=== PATIENT | male | born 1950 | race American Indian/Alaskan Native ===

== ENCOUNTER 2017-03-08 05:43 | Emergency (ER) | payer MEDICARE, OTHER ==
[2017-03-08 05:45] VITALS: BMI 34.9
[2017-03-08 05:49] VITALS: TEMP 97.7
[2017-03-08] MEDS ORDERED: Albuterol-Ipratrop 3 mg / 0.5 (3 ml) UD IH STA ×3 (06:10→06:15)
--- NOTE | 2017-03-08 06:14 | ED PDOC ---
Arrival/HPI - General Chief Complaint: Shortness Of Breath Time Seen by Provider: 03/08/17 05:52 - History of Present Illness Narrative History of Present Illness (Text): 66 y/o M c PMHx HTN, CAD s/p stent, hypothyroidism p/w dyspnea x 5 hours that awoke him. He states the shortness of breath is not typical of the dyspnea he gets on exertion. He denies chest pain, new or asymmetrical leg swelling, recent URI or fever. He has a long smoking history but denies history of COPD but states he has received albuterol in the hospital before. Past Medical History - Infectious Disease Hx of Infectious Diseases: None - Cardiac Hx Hypertension: Yes Other/Comment: CAD. Stents - Pulmonary Other/Comment: Heavy smoker - Neurological HX Cerebrovascular Accident: Yes - HEENT Hx Cataracts: Yes (with surgery) - Endocrine/Metabolic Hx Hypothyroidism: Yes - Gastrointestinal Other/Comment: "Liver problems" - Psychiatric Hx Substance Use: No - Surgical History Hx Cardiac Catheterization: Yes (stents) - Anesthesia Hx Anesthesia: Yes Hx Anesthesia Reactions: No Hx Malignant Hyperthermia: No Family/Social History Family/Social History: No Known Family HX Smoking Status: Heavy Smoker > 10 Cigarettes Daily Hx Alcohol Use: Yes Frequency of alcohol use: Socially Hx Substance Use: No Allergies/Home Meds Allergies/Adverse Reactions: Allergies shellfish derived Allergy (Verified 03/08/17 05:50) ANAPHYLAXIS Home Medications: Home Meds Medication Instructions Recorded Confirmed Amlodipine Bes/Olmesartan Med 1 tab PO DAILY 03/08/17 03/09/17 [Samia 10-40 mg Tablet] Atenolol [Tenormin] 1 tab PO DAILY 03/08/17 03/09/17 Clopidogrel [Plavix] 1 tab PO DAILY 03/08/17 03/09/17 Levothyroxine [Synthroid] 1 tab PO DAILY 03/08/17 03/09/17 Pravastatin Sodium [Pravachol] 1 tab PO DAILY 03/08/17 03/09/17 cloNIDine [Catapres] 1 tab PO DAILY 03/08/17 03/09/17 Review of Systems - Physician Review All systems were reviewed & negative as marked: Yes - Review of Systems Constitutional: absent: Fevers Respiratory: SOB Cardiovascular: absent: Chest Pain Physical Exam Vital Signs Temp Pulse Resp BP Pulse Ox 03/08/17 09:20 72 21 153/59 H 94 L 05/12/17 08:00 76 16 134/65 97 03/08/17 05:58 16 93 L 03/08/17 05:44 97.7 F 65 18 141/59 L 94 L Temperature: Afebrile Pulse: Regular Appearance: Positive for: Well-Appearing, Non-Toxic Mental Status: Positive for: Alert and Oriented X 3 - Systems Exam Head: Present: Atraumatic, Normocephalic Pupils: Present: PERRL Mouth: Present: Moist Mucous Membranes Neck: Present: Normal Range of Motion Respiratory/Chest: Present: Wheezes Cardiovascular: Present: Regular Rate and Rhythm Abdomen: No: Tenderness Back: No: CVA Tenderness Upper Extremity: Present: NORMAL PULSES Lower Extremity: Present: Normal Inspection Neurological: Present: GCS=15 Skin: Present: Normal Color Psychiatric: Present: Alert Medical Decision Making ED Course and Treatment: Will treat with duoenbs and steroids, check CXR to rule out PNA. Will sign out to ER day team at change of shift. - Lab Interpretations Lab Results: 03/08/17 06:10 03/08/17 07:20 Lab Results 03/08/17 07:20: Sodium 143, Potassium 3.6, Chloride 106, Carbon Dioxide 23, Anion Gap 18, BUN 11, Creatinine 0.7, Est GFR ( Amer) > 60, Est GFR (Non- Af Amer) > 60, Random Glucose 111 H, Calcium 8.9, Total Bilirubin 0.7, AST 82 H , ALT 50, Alkaline Phosphatase 149 H, Total Creatine Kinase 219, Troponin I 0.03 , NT-Pro-B Natriuret Pep 535 H, Total Protein 8.1, Albumin 4.1, Globulin 3.9, Albumin/Globulin Ratio 1.1 03/08/17 06:10: WBC 5.0, RBC 3.27 L, Hgb 10.3 L, Hct 31.2 L, MCV 95.4, MCH 31.5 , MCHC 33.0, RDW 17.4 H, Plt Count 163, MPV 11.4 H, Gran % 56.9, Lymph % (Auto) 36.5 H, [place] % (Auto) 5.2, Eos % (Auto) 1.2 L, Baso % (Auto) 0.2, Gran # 2.84, Lymph # 1.8, [place] # 0.3, Eos # 0.1, Baso # 0.01 - RAD Interpretation Radiology Orders: 03/08/17 06:09 CHEST TWO VIEWS (PA/LAT) [RAD] Stat - Medication Orders Current Medication Orders: Discontinued Medications Albuterol/Ipratropium (Duoneb 3 Mg/0.5 Mg (3 Ml) Ud) 3 ml IH Q15M STA Stop: 03/08/17 06:11 Last Admin: 03/08/17 06:10 Dose: 3 ml Albuterol/Ipratropium (Duoneb 3 Mg/0.5 Mg (3 Ml) Ud) 3 ml IH Q15M STA Stop: 03/08/17 06:16 Last Admin: 03/08/17 06:28 Dose: 3 ml Albuterol/Ipratropium (Duoneb 3 Mg/0.5 Mg (3 Ml) Ud) 3 ml IH Q15M STA Stop: 03/08/17 06:16 Last Admin: 03/08/17 06:42 Dose: 3 ml Methylprednisolone (Solu-Medrol) 125 mg IVP STAT STA Stop: 03/08/17 06:11 Last Admin: 03/08/17 06:17 Dose: 125 mg Disposition/Present on Arrival - Present on Arrival Any Indicators Present on Arrival: No History of DVT/PE: No History of Uncontrolled Diabetes: No Urinary Catheter: No History of Decub. Ulcer: No History Surgical Site Infection Following: None - Disposition Have Diagnosis and Disposition been Completed?: Yes Diagnosis: Wheezing Disposition: HOME/ ROUTINE Disposition Time: 07:00 Condition: GOOD Discharge Instructions (ExitCare): Dyspnea (ED), Wheezing (ED) Additional Instructions: PLEASE RETURN TO THE EMERGENCY DEPARTMENT FOR NEW OR WORSENING SYMPTOMS. RETURN RIGHT AWAY IF YOU CANNOT FOLLOW UP WITH YOUR PRIMARY CARE DOCTOR, CLINIC, OR SPECIALIST IN 1-2 DAYS. Prescriptions: Albuterol HFA [Ventolin HFA 90 mcg/actuation (8 g)] 2 puff IH Q4 #1 puff predniSONE [predniSONE Tab] 60 mg PO DAILY #12 tab Referrals: Nikhil Richardson, [Primary Care Provider] - Follow up with primary Sherman Flowers MD [Staff Provider] - Follow up with primary Chaz Benítez MD [Staff Provider] - Follow up with primary Sherman Pritchard MD [Staff Provider] - Follow up with primary
[2017-03-08 06:24] LABS: ADD MANUAL DIFF? NO
[2017-03-08 06:35] LABS: BASO # 0.01 K/mm3 (0.0-2.0); BASO % 0.2 % (0.0-3.0); EOS # 0.1 (0.0-0.7); EOS % 1.2 % (1.5-5.0); GRAN # 2.84 (1.4-6.5); GRAN % 56.9 % (50.0-68.0); HEMATOCRIT 31.2 % (42.0-52.0); LYMPH # 1.8 (1.2-3.4); LYMPH % 36.5 % (22.0-35.0); MEAN CELL VOLUME 95.4 fL (80.0-105.0); MEAN CORPUSCULAR HEMOGLOBIN 31.5 pg (25.0-35.0); MEAN PLATELET VOLUME 11.4 fl (7.0-11.0); MONO # 0.3 (0.1-0.6); MONO % 5.2 % (1.0-6.0); PLATELET COUNT 163 10^3/uL (120.0-450.0); RED CELL DISTRIBUTION WIDTH 17.4 % (11.5-14.5)
--- NOTE | 2017-03-08 07:12 | ED PDOC ---
Physical Exam Vital Signs Reviewed: Yes Vital Signs Temp Pulse Resp BP Pulse Ox 03/08/17 05:58 16 93 L 03/08/17 05:44 97.7 F 65 18 141/59 L 94 L Temperature: Afebrile Blood Pressure: Hypotensive Pulse: Regular Respiratory Rate: Normal Medical Decision Making ED Course and Treatment: 03/08/17 07:11 Patient signed out to me by Dr. Garcia. Pending labs and xray. Patient with a history of hypertension and CAD with stents presented with shortness of breath, denies chest pain. Per Dr. Garcia, pt had wheezing on presentation 03/08/17 07:40 pt currently in no distress, states he feels better after nebs. Lungs clear to ausc. b/l, pt speaking full sentences without difficulty. labs pending Chest xray interpreted by ED physician shows no pneumothorax, no cardiomegaly, no infiltrates EKG interpreted by ER physician. Normal sinus. No ST-segment elevations. Normal intervals. 03/08/17 09:10 on reevaluation, pt's lungs clear to ausc. bilaterally. pt speaking full sentences without difficulty pt offered observation in the hospital for further w/u, but asked to be dc'd home instead states he feels comfortable being dc'd home with outpatient f/u Pt states he understands to return to the ER right away for new or worsening symptoms or for inability to f/u with PMD or specialist as instructed. Patient states that he fully agrees with and understands discharge instructions. States that he agrees with the plan and disposition. Verbalized and repeated discharge instructions and plan. I have given the patient opportunity to ask any additional questions. 03/08/17 09:15 - Lab Interpretations Lab Results: 03/08/17 06:10 03/08/17 07:20 Lab Results 03/08/17 07:20: Sodium 143, Potassium 3.6, Chloride 106, Carbon Dioxide 23, Anion Gap 18, BUN 11, Creatinine 0.7, Est GFR ( Amer) > 60, Est GFR (Non- Af Amer) > 60, Random Glucose 111 H, Calcium 8.9, Total Bilirubin 0.7, AST 82 H , ALT 50, Alkaline Phosphatase 149 H, Total Creatine Kinase 219, Troponin I 0.03 , NT-Pro-B Natriuret Pep 535 H, Total Protein 8.1, Albumin 4.1, Globulin 3.9, Albumin/Globulin Ratio 1.1 03/08/17 06:10: WBC 5.0, RBC 3.27 L, Hgb 10.3 L, Hct 31.2 L, MCV 95.4, MCH 31.5 , MCHC 33.0, RDW 17.4 H, Plt Count 163, MPV 11.4 H, Gran % 56.9, Lymph % (Auto) 36.5 H, [place] % (Auto) 5.2, Eos % (Auto) 1.2 L, Baso % (Auto) 0.2, Gran # 2.84, Lymph # 1.8, [place] # 0.3, Eos # 0.1, Baso # 0.01 - RAD Interpretation Radiology Orders: 03/08/17 06:09 CHEST TWO VIEWS (PA/LAT) [RAD] Stat - Medication Orders Current Medication Orders: Discontinued Medications Albuterol/Ipratropium (Duoneb 3 Mg/0.5 Mg (3 Ml) Ud) 3 ml IH Q15M STA Stop: 03/08/17 06:11 Last Admin: 03/08/17 06:10 Dose: 3 ml Albuterol/Ipratropium (Duoneb 3 Mg/0.5 Mg (3 Ml) Ud) 3 ml IH Q15M STA Stop: 03/08/17 06:16 Last Admin: 03/08/17 06:28 Dose: 3 ml Albuterol/Ipratropium (Duoneb 3 Mg/0.5 Mg (3 Ml) Ud) 3 ml IH Q15M STA Stop: 03/08/17 06:16 Last Admin: 03/08/17 06:42 Dose: 3 ml Methylprednisolone (Solu-Medrol) 125 mg IVP STAT STA Stop: 03/08/17 06:11 Last Admin: 03/08/17 06:17 Dose: 125 mg - Scribe Statement The provider has reviewed the documentation as recorded by the Nya Ko Provider Scribe Attestation: All medical record entries made by the Scribe were at my direction and personally dictated by me. I have reviewed the chart and agree that the record accurately reflects my personal performance of the history, physical exam, medical decision making, and the department course for this patient. I have also personally directed, reviewed, and agree with the discharge instructions and disposition. Disposition/Present on Arrival - Present on Arrival Any Indicators Present on Arrival: No History of DVT/PE: No History of Uncontrolled Diabetes: No Urinary Catheter: No History of Decub. Ulcer: No History Surgical Site Infection Following: None - Disposition Have Diagnosis and Disposition been Completed?: Yes Diagnosis: Wheezing Disposition: HOME/ ROUTINE Disposition Time: 09:16 Patient Plan: Discharge Condition: GOOD Discharge Instructions (ExitCare): Wheezing (ED), Dyspnea (ED) Additional Instructions: PLEASE RETURN TO THE EMERGENCY DEPARTMENT FOR NEW OR WORSENING SYMPTOMS. RETURN RIGHT AWAY IF YOU CANNOT FOLLOW UP WITH YOUR PRIMARY CARE DOCTOR, CLINIC, OR SPECIALIST IN 1-2 DAYS. Prescriptions: Albuterol HFA [Ventolin HFA 90 mcg/actuation (8 g)] 2 puff IH Q4 #1 puff predniSONE [predniSONE Tab] 60 mg PO DAILY #12 tab Referrals: Nikhil Richardson, [Primary Care Provider] - Follow up with primary Sherman Pritchard MD [Staff Provider] - Follow up with primary Sherman Flowers MD [Staff Provider] - Follow up with primary Chaz Benítez MD [Staff Provider] - Follow up with primary
[2017-03-08 07:47] LABS: ALB/GLOB RATIO 1.1 (1.1-1.8); ALKALINE PHOSPHATASE 149 U/L (38-133); ALT/SGPT 50 U/L (7-56); AST/SGOT 82 U/L (15-59); BILIRUBIN,TOTAL 0.7 mg/dL (0.2-1.3); BLOOD UREA NITROGEN 11 mg/dL (7-21); CALCIUM 8.9 mg/dL (8.4-10.5); CARBON DIOXIDE 23 mmol/L (21-33); CHLORIDE 106 mmol/L (98-107); GFR AFRICAN-AMERICAN > 60; GLUCOSE,RANDOM 111 mg/dL (70-110); POTASSIUM 3.6 mmol/L (3.6-5.0); SODIUM 143 mmol/L (132-148); TOTAL PROTEIN 8.1 g/dL (5.8-8.3)
[2017-03-08 07:57] LABS: TROPONIN I 0.03 ng/mL
--- NOTE | 2017-03-08 08:48 | RAD ---
HISTORY: r/o PNA, dyspnea, wheezing COMPARISON: No prior. TECHNIQUE: Chest PA and lateral FINDINGS: LUNGS: No active pulmonary disease. PLEURA: No significant pleural effusion identified. No pneumothorax apparent. CARDIOVASCULAR: There is mild vascular congestion OSSEOUS STRUCTURES: No significant abnormalities. VISUALIZED UPPER ABDOMEN: Normal. OTHER FINDINGS: None. IMPRESSION: Mild vascular congestion
[2017-03-08 09:21] VITALS: BP 153/59; PULSE 72; RESP 21; O2SAT 94
--- NOTE | 2017-03-08 11:52 | CARD ---
APPROVED REPORT EKG Measurement Heart [id number] <Conclusion> Sinus rhythm with 1st degree AV block Inferior infarct, age undetermined NSSTW changes
== END 2017-03-08 09:35 | disposition home or self-care (01) ==
LOC: ED 05:43
DX: R06.2 Wheezing (principal); I10 Essential (primary) hypertension; I25.10 Atherosclerotic heart disease of native coronary artery without angina pectoris; E03.9 Hypothyroidism, unspecified
CPT/HCPCS: 71020; 80053; 82550; 83880; 84484; 85025; 93005; 96374; 99285; J2930

== ENCOUNTER 2017-03-09 07:06 | Inpatient (IN) | payer MEDICARE ==
[2017-03-09] MEDS ORDERED: Albuterol-Ipratrop 3 mg / 0.5 (3 ml) UD IH STA (07:20)
[2017-03-09] MEDS ORDERED: MethylPREDNISolone 40 mg Vial IVP STA (07:31)
--- NOTE | 2017-03-09 07:31 | ED PDOC ---
Arrival/HPI - General Chief Complaint: Shortness Of Breath Time Seen by Provider: 03/09/17 07:08 - History of Present Illness Narrative History of Present Illness (Text): 66 y/o M c PMHx HTN, CAD s/p stent, hypothyroidism p/w dyspnea that awoke him last night. He reports burning in his chest, which feels similar to his heartburn and he took Zantac with releif. He denies new or asymmetrical leg swelling, recent URI or fever. He has a long smoking history but denies history of COPD but states he has received albuterol in the hospital before. He was in this ER yesterday morning with the same dyspnea and had wheezing on auscultation , was treated with duonebs, steroids, felt better, and was offered observation but preferred to be discharged home. His symptoms recurred last night so he returned. He states that he has more dyspnea with laying flat. Past Medical History - Infectious Disease Hx of Infectious Diseases: None - Cardiac Hx Hypertension: Yes Other/Comment: CAD. Stents - Pulmonary Other/Comment: Heavy smoker - Neurological HX Cerebrovascular Accident: Yes - HEENT Hx Cataracts: Yes (with surgery) - Endocrine/Metabolic Hx Hypothyroidism: Yes - Gastrointestinal Other/Comment: "Liver problems" - Psychiatric Hx Substance Use: No - Surgical History Hx Cardiac Catheterization: Yes (stents) - Anesthesia Hx Anesthesia: Yes Hx Anesthesia Reactions: No Hx Malignant Hyperthermia: No Family/Social History Family/Social History: No Known Family HX Smoking Status: Heavy Smoker > 10 Cigarettes Daily Hx Alcohol Use: Yes Hx Substance Use: No Allergies/Home Meds Allergies/Adverse Reactions: Allergies shellfish derived Allergy (Verified 03/08/17 05:50) ANAPHYLAXIS Home Medications: Home Meds Medication Instructions Recorded Confirmed Amlodipine Bes/Olmesartan Med 1 tab PO DAILY 03/08/17 03/09/17 [Samia 10-40 mg Tablet] Atenolol [Tenormin] 1 tab PO DAILY 03/08/17 03/09/17 Clopidogrel [Plavix] 1 tab PO DAILY 03/08/17 03/09/17 Levothyroxine [Synthroid] 1 tab PO DAILY 03/08/17 03/09/17 Pravastatin Sodium [Pravachol] 1 tab PO DAILY 03/08/17 03/09/17 cloNIDine [Catapres] 1 tab PO DAILY 03/08/17 03/09/17 Review of Systems - Physician Review All systems were reviewed & negative as marked: Yes - Review of Systems Constitutional: absent: Fevers Respiratory: SOB Gastrointestinal: absent: Abdominal Pain Physical Exam - Physical Exam Narrative Physical Exam (Text): 03/09/17 07:32 Constitutional: No acute distress. Head: Normocephalic. Atraumatic. Eyes: PERRL. ENT: Moist mucous membranes. Neck: Supple. Cardiovascular: Regular rate. Chest: No tenderness. Respiratory: Mild diffuse wheezing. Hypoxic to 91% on room air. GI: Soft. Nontender. Nondistended. Back: No CVA tenderness. Musculoskeletal: No tenderness or swelling of extremities. Skin: No rash. Neurologic: Alert, no focal deficit. Vital Signs Temp Pulse Resp BP Pulse Ox 03/09/17 10:04 75 18 135/70 95 03/09/17 08:30 80 20 146/88 93 L 03/09/17 07:14 98.7 F 76 20 152/73 H 92 L Medical Decision Making ED Course and Treatment: Will continue duoneb and treat with additional steroids. Will also check BNP, second set enzymes, and repeat CXR for developing PNA vs developing CHF. EKG: Ordered, reviewed, and independently interpreted the EKG. Rate : 70 BPM Rhythm : NSR Interpretation : No ST elevations. Non-specific ST-T wave changes. Q-waves in 3 and AVF. Comparison : Unchanged from yesterday. Troponin positive. Aspirin administered. Dr. Gilbert accepts to her service on remote telemetry. Dr. Brito accepts cardiology consultation. Dr. Arciniega accepts GI consultation for elevated LFTs. CXR shows no change from yesterday. - Lab Interpretations Lab Results: 03/09/17 07:33 03/09/17 07:33 Lab Results 03/09/17 07:33: Sodium 142, Potassium 4.0, Chloride 105, Carbon Dioxide 21, Anion Gap 20, BUN 20, Creatinine 0.8, Est GFR ( Amer) > 60, Est GFR (Non- Af Amer) > 60, Random Glucose 161 H, Calcium 9.2, Total Bilirubin 0.7, AST 78 H , ALT 48, Alkaline Phosphatase 140 H, Total Creatine Kinase 296 H, CK-MB (CK-2) 3.1, CK-MB (CK-2) % Cancelled, Troponin I 0.14 H* D, NT-Pro-B Natriuret Pep 1220 H, Total Protein 8.7 H, Albumin 4.2, Globulin 4.5, Albumin/Globulin Ratio 0.9 L 03/09/17 07:33: PT 12.2 H, INR 1.13 H, APTT 26.1 03/09/17 07:33: WBC 7.0 D, RBC 3.18 L, Hgb 10.0 L, Hct 30.5 L, MCV 95.9, MCH 31.4, MCHC 32.8, RDW 17.4 H, Plt Count 172, MPV 11.5 H, Gran % 79.8 H, Lymph % ( Auto) 15.6 L, [place] % (Auto) 4.6, Eos % (Auto) 0.0 L, Baso % (Auto) 0.0, Gran # 5.58, Lymph # 1.1 L, [place] # 0.3, Eos # 0.0, Baso # 0.00 - RAD Interpretation Radiology Orders: 03/09/17 07:23 CHEST TWO VIEWS (PA/LAT) [RAD] Stat 03/09/17 09:04 HEPATIC [US] Stat - Medication Orders Current Medication Orders: Acetaminophen (Tylenol 325mg Tab) 650 mg PO Q6H PRN PRN Reason: Pain Amlodipine Besylate (Norvasc) 10 mg PO DAILY [facility] Atorvastatin Calcium (Lipitor) 10 mg PO DIN [facility] Clonidine HCl (Catapres) 0.1 mg PO Q4H PRN PRN Reason: accelerated hyperetension Clopidogrel Bisulfate (Plavix) 75 mg PO DAILY [facility] Insulin Human Regular (Humulin R Low) 0 units SC ACHS DIANE PRN Reason: Protocol Levalbuterol HCl (Xopenex) 0.63 mg IH [id number] [facility] Last Admin: 03/09/17 09:57 Dose: 0.63 mg Lisinopril (Zestril) 10 mg PO BID [facility] Methylprednisolone (Solu-Medrol) 40 mg IV Q6 [facility] Metoprolol Tartrate (Lopressor) 25 mg PO BRKDIN [facility] Pantoprazole Sodium (Protonix Inj) 40 mg IVP DAILY [facility] Discontinued Medications Albuterol/Ipratropium (Duoneb 3 Mg/0.5 Mg (3 Ml) Ud) 3 ml IH Q15M STA Stop: 03/09/17 07:21 Last Admin: 03/09/17 07:35 Dose: 3 ml Aspirin (Aspirin) 325 mg PO STAT STA Stop: 03/09/17 08:41 Last Admin: 03/09/17 09:57 Dose: 325 mg Methylprednisolone (Solu-Medrol) 80 mg IVP STAT STA Stop: 03/09/17 07:32 Last Admin: 03/09/17 08:03 Dose: 80 mg Methylprednisolone (Solu-Medrol) Confirm Administered Dose 80 mg .ROUTE .STK- MED ONE Stop: 03/09/17 07:50 Last Admin: 03/09/17 08:07 Dose: Disposition/Present on Arrival - Present on Arrival Any Indicators Present on Arrival: No History of DVT/PE: No History of Uncontrolled Diabetes: No Urinary Catheter: No History of Decub. Ulcer: No History Surgical Site Infection Following: None - Disposition Have Diagnosis and Disposition been Completed?: Yes Diagnosis: NSTEMI (non-ST elevated myocardial infarction) Disposition: HOSPITALIZED Disposition Time: 08:53 Patient Plan: Admission, Telemetry Condition: GUARDED
[2017-03-09 07:34] LABS: ADD MANUAL DIFF? NO
[2017-03-09 07:40] LABS: GRAN # 5.58 (1.4-6.5); GRAN % 79.8 % (50.0-68.0); HEMATOCRIT 30.5 % (42.0-52.0); LYMPH # 1.1 (1.2-3.4); LYMPH % 15.6 % (22.0-35.0); MEAN CELL VOLUME 95.9 fL (80.0-105.0); MEAN CORPUSCULAR HEMOGLOBIN 31.4 pg (25.0-35.0); MEAN CORPUSCULAR HGB CONC 32.8 g/dl (31.0-37.0); MEAN PLATELET VOLUME 11.5 fl (7.0-11.0); MONO # 0.3 (0.1-0.6); MONO % 4.6 % (1.0-6.0); PLATELET COUNT 172 10^3/uL (120.0-450.0); RED CELL DISTRIBUTION WIDTH 17.4 % (11.5-14.5)
[2017-03-09 07:46] LABS: ALB/GLOB RATIO 0.9 (1.1-1.8); ALKALINE PHOSPHATASE 140 U/L (38-133); ALT/SGPT 48 U/L (7-56); AST/SGOT 78 U/L (15-59); BILIRUBIN,TOTAL 0.7 mg/dL (0.2-1.3); BLOOD UREA NITROGEN 20 mg/dL (7-21); CALCIUM 9.2 mg/dL (8.4-10.5); CARBON DIOXIDE 21 mmol/L (21-33); CHLORIDE 105 mmol/L (98-107); GFR AFRICAN-AMERICAN > 60; GLUCOSE,RANDOM 161 mg/dL (70-110); SODIUM 142 mmol/L (132-148); TOTAL PROTEIN 8.7 g/dL (5.8-8.3)
[2017-03-09 07:47] LABS: INR 1.13 (0.93-1.08); PARTIAL THROMBOPLASTIN TIME 26.1 Seconds (23.7-30.8)
[2017-03-09] MEDS ORDERED: MethylPREDNISolone 40 mg Vial ONE (07:49)
[2017-03-09 08:29] LABS: TROPONIN I 0.14 ng/mL
--- NOTE | 2017-03-09 09:20 | RAD ---
HISTORY: dyspnea, wheezing, "heartburn" COMPARISON: 03/08/2017 TECHNIQUE: Chest PA and lateral FINDINGS: LUNGS: Basilar atelectatic changes. Mild pulmonary vascular congestion. PLEURA: No significant pleural effusion identified. No pneumothorax apparent. CARDIOVASCULAR: Mildly increased size the heart, essentially unchanged from the prior radiograph. OSSEOUS STRUCTURES: The osseous structures demonstrate degenerative changes. VISUALIZED UPPER ABDOMEN: Upper abdomen is suboptimally evaluated. OTHER FINDINGS: None. IMPRESSION: Bibasilar atelectatic changes. Mild pulmonary vascular congestion. No significant interval change.
[2017-03-09] MEDS: Levalbuterol 0.63 MG/3 ML Inhal Soln UD IH SCH ×2 (09:57→19:35)
--- NOTE | 2017-03-09 10:08 | CARD ---
APPROVED REPORT EKG Measurement Heart [id number] VT [id number] <Conclusion> Normal sinus rhythm with 1st degree AVB Nonspecific ST and T wave abnormality Prolonged QT No change
--- NOTE | 2017-03-09 10:19 | US ---
HISTORY: elevated lfts COMPARISON: 11/20/2012 TECHNIQUE: Sonographic evaluation of the abdomen. FINDINGS: LIVER: Measures 18.8 cm. Markedly heterogeneous echogenicity of the liver parenchyma. No intrahepatic bile duct dilatation. GALLBLADDER: Relatively contracted gallbladder. No gallbladder wall edema or pericholecystic fluid. According to the technologist, the sonographic Rodriguez's sign was not present. COMMON BILE DUCT: Measures 3-4 mm. No stones. No dilatation. PANCREAS: Suboptimally seen. RIGHT KIDNEY: Measures 11.6 x 5.5 x 6.6cm. Normal echogenicity. No calculus, mass, or hydronephrosis. LEFT KIDNEY: Not imaged. SPLEEN: Not imaged. AORTA: Not seen clearly. IVC: The visualized portions of the IVC appear unremarkable. OTHER FINDINGS: The visualized segments of the portal vein appear patent. IMPRESSION: Heterogeneous echotexture of the hepatic parenchyma could be due to hepatic steatosis versus parenchymal disease. If indicated, MRI can be obtained for better evaluation. Hepatomegaly.
[2017-03-09 10:42] LABS: IRON 40 ug/dL (45-180)
[2017-03-09] MEDS ORDERED: Insulin Regular 1 UNITS/0.01 ML ML ONE (11:33)
[2017-03-09] MEDS: Insulin Reg-LOW-Coverage SC SCH ×3 (11:33→22:15)
[2017-03-09] MEDS: MethylPREDNISolone 40 mg Vial IV SCH ×2 (12:18→17:20)
[2017-03-09 14:40] VITALS: BMI 35.8
[2017-03-09] MEDS ORDERED: Pneumococcal 23-Valent Vaccine IM ONE (14:40)
[2017-03-09 19:00] LABS: FOLATE 3.8 ng/mL
--- NOTE | 2017-03-09 22:15 | HP ---
This 66-year-old male was examined at his bedside. He presented to the [facility] Emergency Room twice within the past 24 hours. Yesterday he was complaining of shortness of breath, was treated in the ER, achieved symptomatic relief and though advised to stay left but represented this morning complaining of additional shortness of breath and "heartburn." While in the Emergency Room this morning, he was noted to have an elevated troponin level and was admitted for a subendocardial myocardial infarction, a non-DELMA W[place]. The patient also was coughing and congested, was given DuoNeb nebulizers and IV steroids and at present, has a mild expiratory wheeze. On further questioning of the patient, he is a resident of [place], [place], here visiting family members in the [place] area and has comorbidities of chronic hypertension, obesity, hyperlipidemia, peripheral vascular disease, hypothyroidism and chronic obstructive pulmonary disease. He states he is status post coronary artery, carotid and leg stents in the distant past and at present is not complaining of any shortness of breath or chest pain. REVIEW OF SYSTEMS: HEAD: No headache or seizure, no knowledge of previous stroke. EYES: No change in visual acuity. EARS: No hearing loss. THROAT: No swallowing difficulty. NECK: No stiffness. CARDIAC: He is status post a non-STEMI. He has a history of coronary artery stents, chronic hypertension and hyperlipidemia. PULMONARY: Chronic obstructive pulmonary disease, active smoker of a pack of cigarettes per day. GASTROINTESTINAL: He has a history of fatty liver, elevated liver function testings of long duration and history of drinking 1 pint of alcohol daily. GENITOURINARY: No dysuria. SKIN: Without rash. NEUROLOGIC: No knowledge of stroke or TIA. VASCULAR: No active claudication. ENDOCRINE: Hyperlipidemia, HEMATOLOGIC: He has anemia and states he had a colonoscopy and endoscopy within the past 4 years that was completely unremarkable. FAMILY HISTORY: Father at the age of 29 of a reported heart attack, mother in her 40s of leukemia. ALLERGIES: HE HAS ALLERGIES TO SHELLFISH. HOME MEDICATIONS: Included Clonidine, Pravachol, Synthroid, Plavix, Tenormin, Samia and albuterol inhaler. SOCIAL HISTORY: He is former cocaine misuser. No history of IV drug misuse. He is a current smoker and a current drinker. PHYSICAL EXAMINATION: VITAL SIGNS: The patient is in a normal sinus rhythm on the informatics developer with a temperature of 98.8, respirations 18, pulse 72, blood pressure 141/77 with a pulse ox of 95% on room air. HEENT: Head is normocephalic, atraumatic. Eyes show no icterus. Ears clear. Throat not injected. NECK: Supple. HEART: Regular S1, S2. No pathological rubs, murmurs, or gallops. LUNGS: With occasional rhonchi and wheezing that clear with coughing. ABDOMEN: Obese, nontender, no palpable organomegaly, no rebound, no guarding, no tenderness. EXTREMITIES: No clubbing, no cyanosis, no edema. SKIN: Without rash. NEUROLOGICAL: Intact. PSYCHOLOGICAL: Alert and oriented x 3. VASCULAR: Legs warm to touch. LABORATORY DATA: White count 7000, hemoglobin 10, hematocrit 30.5, MCV 95, platelets 172,000. PT/INR 1.13, PTT 26.1. Sodium 142, K 4.0, chloride 105, bicarbonate 21, BUN 20, creatinine 0.8, random blood sugar 161, percent saturation 10, bilirubin normal at 0.7, AST 78, normal is 59 or less; ALT normal at 48, alkaline phosphatase 140, normal is 133 or less. CPK elevated at 296, troponin elevated at 0.14. BNP 1220. Cholesterol 144, LDL 106, HDL 31, triglycerides 82. T4 is normal at 11. Vitamin B12, folic acid, and ferritin levels are pending. Chest x-ray shows no active disease. EKG shows normal sinus rhythm with nonspecific ST-T wave changes. Liver ultrasound showed fatty liver and hepatomegaly. IMPRESSION: This is a 66-year-old obese black male with a non-ST elevation myocardial infarction, chronic hypertension, hyperlipidemia, history of atherosclerotic heart disease with stents, now with resolved "heartburn" with anemia, chronic obstructive pulmonary disease, hyperglycemia and hypothyroidism. PLAN: At present is to consult Dr. Brito from cardiology, consult, Dr. Gisele Arciniega from gastroenterology. I have ordered a Hepatitis A, B, and C panel for completeness sake. I have also ordered an urinalysis for completeness sake and placed the patient on a heart healthy moderately restricted carbohydrate diet. He will be given Zestril 10 mg b.i.d., Xopenex inhalational therapy q.6, Synthroid 12.5 mcg p.o. daily, Solu-Medrol 40 mg IV q.6, which will be tapered pending his clinical response, Protonix 40 mg IV daily, Plavix 75 mg p.o. daily , Norvasc 10 mg p.o. daily, metoprolol tartrate 25 mg b.i.d., Lipitor 10 mg p.o. at dinnertime. I have placed him on regular low dose insulin protocol before meals and at bedtime. He will be ordered to have clonidine 0.1 mg p.o. q.4 hours p.r.n. accelerated hypertension if his systolic blood pressure should be greater than 160 or his diastolic blood pressure should be greater than 100. The patient was given Ecotrin 325 mg in the Emergency Room. He will have a basic metabolic panel and hemoglobin and hematocrit repeated in the a.m. We will await the results of his vitamin B12, and hepatitis panels as well as his folic acid level and ferritin. I have had a lengthy discussion with the patient at his bedside regarding the need upon his return to his private physician in [place], [place] to review his findings of iron deficiency anemia and to schedule perhaps a repeat endoscopy and colonoscopy if his PMD feels it is warranted at this time. They will also need to further monitor his anemia. The patient is awaiting clearances from GI and cardiology and his ultimate plan will be to return home to his private physician for additional workup and addressing all of the above issues as outlined. Greater than 50 minutes was spent in the care, coordination of care, review of care and discussion of care with the patient, his nurse and co-consultants today. Nehal Gilbert MD cc: [id number] TT: 03/09/2017 22:15:02 jovanna MURPHY
--- NOTE | 2017-03-09 23:34 | CP.PCM.PN ---
Subjective - Date & Time of Evaluation Date of Evaluation: 03/09/17 Time of Evaluation: 23:34 - Subjective Subjective: # angiocth was inserted in arm. DX : Poor venous access. Objective - Vital Signs/Intake and Output Vital Signs (last 24 hours): Temp Pulse Resp BP Pulse Ox 98.4 F 70 16 144/59 L 95 03/09/17 17:37 03/09/17 19:36 03/09/17 17:37 03/09/17 17:37 03/09/17 11:16 Intake and Output: 03/09/17 03/10/17 18:59 06:59 Intake Total 360 Balance 360 - Medications Medications: Current Medications Acetaminophen (Tylenol 325mg Tab) 650 mg PO Q6H PRN PRN Reason: Pain Amlodipine Besylate (Norvasc) 10 mg PO DAILY [facility] Last Admin: 03/09/17 10:14 Dose: 10 mg Atorvastatin Calcium (Lipitor) 10 mg PO DIN [facility] Last Admin: 03/09/17 17:16 Dose: 10 mg Clonidine HCl (Catapres) 0.1 mg PO Q4H PRN PRN Reason: accelerated hyperetension Clopidogrel Bisulfate (Plavix) 75 mg PO DAILY [facility] Last Admin: 03/09/17 10:15 Dose: 75 mg Enoxaparin Sodium (Lovenox) 120 mg SC Q12H [facility] PRN Reason: Protocol Insulin Human Regular (Humulin R Low) 0 units SC ACHS [facility] PRN Reason: Protocol Last Admin: 03/09/17 22:15 Dose: Not Given Levalbuterol HCl (Xopenex) 0.63 mg IH [id number] [facility] Last Admin: 03/09/17 19:35 Dose: 0.63 mg Levothyroxine Sodium (Synthroid) 12.5 mcg PO ACB [facility] Lisinopril (Zestril) 10 mg PO BID [facility] Last Admin: 03/09/17 17:11 Dose: 10 mg Methylprednisolone (Solu-Medrol) 40 mg IV Q6 [facility] Last Admin: 03/09/17 17:20 Dose: 40 mg Metoprolol Tartrate (Lopressor) 25 mg PO BRKDIN [facility] Last Admin: 03/09/17 17:11 Dose: 25 mg Pantoprazole Sodium (Protonix Inj) 40 mg IVP DAILY [facility] Last Admin: 05/13/17 10:14 Dose: 40 mg - Labs Labs: PT 12.2 Seconds (9.9-11.8) H 03/09/17 07:33 INR 1.13 (0.93-1.08) H 03/09/17 07:33 APTT 26.1 Seconds (23.7-30.8) 03/09/17 07:33
[2017-03-10] MEDS: MethylPREDNISolone 40 mg Vial IV SCH ×4 (00:17→22:13)
[2017-03-10] MEDS: Enoxaparin 120 mg Syringe SC SCH ×3 (00:19→22:12)
[2017-03-10] MEDS: Levalbuterol 0.63 MG/3 ML Inhal Soln UD IH SCH ×5 (00:49→20:40)
[2017-03-10 04:42] LABS: URINE BILIRUBIN NEGATIVE (NEGATIVE); URINE BLOOD NEGATIVE (NEGATIVE); URINE GLUCOSE (UA) NEGATIVE (NEGATIVE); URINE KETONE NEGATIVE (NEGATIVE); URINE LEUKOCYTE ESTERASE NEGATIVE Leu/uL (NEGATIVE); URINE PROTEIN NEGATIVE mg/dL (<30 mg/dL); URINE UROBILINOGEN 0.2 E.U./dL (<1 E.U./dL)
[2017-03-10 04:43] LABS: URINE APPEARANCE CLEAR (CLEAR); URINE COLOR YELLOW (YELLOW)
[2017-03-10 06:52] LABS: BLOOD UREA NITROGEN 28 mg/dL (7-21); CALCIUM 8.9 mg/dL (8.4-10.5); CARBON DIOXIDE 27 mmol/L (21-33); CHLORIDE 105 mmol/L (98-107); GFR AFRICAN-AMERICAN > 60; GLUCOSE,RANDOM 155 mg/dL (70-110); SODIUM 142 mmol/L (132-148)
[2017-03-10 07:02] LABS: HEMATOCRIT 30.3 % (42.0-52.0)
[2017-03-10 07:06] LABS: TROPONIN I 0.23 ng/mL
--- NOTE | 2017-03-10 07:41 | CON ---
DATE: 03/09/2017 This patient was seen and evaluated earlier today. This is a 66-year-old patient with a past medical history of hypertension, coronary artery disease status post PCI, hypothyroidism. Admitted with pro gressive worsening of shortness of breath and the symptoms got more pronounced last night. He came t o the Emergency Room. He has a history of chronic reflux and he thought this could be it and took so me Zantac with some relief. This patient was admitted with progressive shortness of breath. The pat feng was found to have abnormal LFTs. GI consult was requested to evaluate. The patient lives in [facility] [place]. He is here visiting his sister. OTHER PAST MEDICAL HISTORY: As above. SOCIAL HISTORY: Positive for smoking. The patient was found to have elevated LFTs. GI consult was requested to evaluate this. Denies any abdominal pain. The ultrasound showed a contracted gallbladder. The bile duct measures only 3-4 mm. PHYSICAL EXAMINATION: EXTREMITIES: The patient does have bilateral pitting pedal edema. LUNGS: Shows slightly reduced at bases and occasional crackles seen. IMPRESSION: This 66-year-old patient admitted with shortness of breath, found to have pneumonia. GI consult was requested to evaluate the abnormal LFTs. 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 Other comorbidities as ment ioned above, history of hypertension. PLAN: 1. To follow up the hemoglobin and hematocrit. 2. Follow up the hepatitis profile. 3. Followup of the ultrasound. 4. Would recommend followup of the LFTs and hepatitis profile. 5. Continue present management and cardiology will follow up. 6. Continue to closely follow up the LFTs. Presently, patient is on Lipitor, Plavix, Solu-Medrol and insulin. We will continue to closely follo w up his care and suggest further management based on the clinical course. Continue to follow up the LFTs, hepatitis profile. Thank you very much for allowing us to participate in the care of the patient. Gisele Arciniega MD cc: [id number] TT: 03/10/2017 07:40:25 Confirmation # [id number] Dictation # [id number] en
[2017-03-10] MEDS: Insulin Reg-LOW-Coverage SC SCH ×4 (08:12→22:21)
[2017-03-10] MEDS: Levothyroxine 25 MCG TAB PO SCH (08:13)
[2017-03-10] MEDS: Potassium Chloride 20 mEq ER Tab PO SCH (10:30)
--- NOTE | 2017-03-10 10:46 | CARD ---
APPROVED REPORT EKG Measurement Heart [id number] <Conclusion> Normal sinus rhythm Leftward axis Inferior infarct, age undetermined Prolonged QTc STTW changes No change
--- NOTE | 2017-03-10 13:32 | CON ---
DATE: 03/10/2017 INDICATIONS: NSTEMI. This is a 66-year-old man admitted through the Emergency Room yesterday when he presented with recurring chest pain and shortness of breath. He was found to have an elevated troponin. He was admitted to telemetry. He has had no further chest pain. There is no shortness of breath now. He denies orthopnea, PND, syncope, presyncope, lightheadedness, dizziness and vertigo. There is occasional pedal edema and leg discomfort on walking. There is no fever, chills , cough, sputum production, hemoptysis, abdominal pain, nausea, vomiting, diarrhea, constipation, melena. PAST MEDICAL HISTORY: Complex. He lives in [place] and is visiting family. He has a history of coronary artery disease with coronary artery stents, possibly carotid and peripheral stents as well. He is anemic. His LFTs are abnormal. He is a limited historian. He has a history of hypertension, hyperlipidemia, hypothyroidism, and COPD. He continues to smoke. He drinks alcohol daily. There is a history of cocaine use in the past. There is no history of rheumatic fever, congestive heart failure, arrhythmia, stroke, TIA, diabetes or gout. MEDICATIONS: On admission included Samia, atenolol, Plavix, Synthroid, Pravachol and clonidine. ALLERGIES: THERE IS AN ALLERGY TO SHELLFISH, BUT NO MEDICATIONS. SOCIAL HISTORY: He is a smoker. He drinks alcohol regularly. He lives at home and he has physicians in [place]. FAMILY HISTORY: Notable for heart disease in his father. REVIEW OF SYSTEMS: A 10-point is otherwise unremarkable except as noted above. PHYSICAL EXAMINATION: GENERAL: He is a well-developed male, in no acute distress. VITAL SIGNS is notable for sinus rhythm at 80 beats per minute. He is afebrile. Blood pressure 134/57, respirations 20, O2 sat 97%-99% on nasal cannula. HEENT: Reveals no neck vein distention, thyromegaly, or carotid bruits. Mucous membranes moist. Conjunctivae pink. NECK: Supple. CHEST: Lung carter clear with a few scattered rhonchi. HEART: Revealed normal first and second heart sounds. No murmur, gallop, rub or click. ABDOMEN: Soft, bowel sounds present. No mass, organomegaly, rebound, guarding , tenderness, CVA tenderness or palpable abdominal aortic aneurysm. EXTREMITIES: Revealed no cyanosis, clubbing, or edema. NEUROLOGIC: Awake, alert, oriented and intact. PSYCHIATRIC: Normal as to mood and affect. SKIN: Warm and dry. No rash or cellulitis. LABORATORY AND IMAGING: A chest x-ray reveals bibasilar atelectatic changes, mild pulmonary vascular congestion. EKG demonstrates regular sinus rhythm, inferior LA, age indeterminate, nonspecific ST-wave changes. Abdominal ultrasound reveals heterogeneous echotexture of the hepatic parenchyma, could be due to hepatic steatosis versus parenchymal disease. White count normal, platelet count normal, hemoglobin 9.7, hematocrit 30.3. PT 12.2, INR 1.13, PTT normal. Electrolytes, BUN, creatinine unremarkable. Blood sugar 161, repeat 155. Calcium 9.2. AST, ALT 78 and 48 respectively. Alk phos 140. CK 293. Troponin 0.14, repeat 0.40, repeat 0.23. BNP 1220. Total cholesterol 144, LDL 106, triglycerides 82, HDL 31. B12 and folate levels are normal. T4 is normal. Urinalysis is unremarkable. IMPRESSION: The patient is a 66-year-old man with chest pain and shortness of breath, elevated troponins consistent with a non-ST elevation myocardial infarction with a history of atherosclerotic cardiovascular disease and prior coronary stenting and possibly carotid and peripheral stenting as well (he is a limited historian on the details). His regular physicians are in [place]. He is visiting here in [place]. He is on telemetry. He is getting aspirin, clonidine, Lipitor, metoprolol, Lovenox, amlodipine, Plavix, pantoprazole, Solu-Medrol, Synthroid, Tylenol, Xopenex, lisinopril. In addition to his non-ST elevation myocardial infarction , he has evidence of anemia and abnormal liver function tests, possibly longstanding liver disease (? ETOH related), although his history is limited. He is having a GI evaluation. We will check stool for occult blood. I will get an echocardiogram. He should be considered for cardiac catheterization to define his coronary anatomy. He may wish to return to [place] for this testing. He also needs a GI evaluation and a liver evaluation as well as an anemia evaluation. He should stop smoking and drinking alcohol. I will follow with you. I will make additional recommendations based on his clinical course. Dharmesh Brito MD cc: [id number] TT: 03/10/2017 13:31:54 Confirmation # [id number] Dictation # [id number] en KATHERINE
--- NOTE | 2017-03-10 19:28 | PN ---
DATE: 03/10/2017 This 66-year-old male was examined at his bedside and his case was reviewed in detail with himself and co-consultants, Dr. Brito from cardiology and Dr. Arciniega from GI. The patient presented with chest pain and shortness of breath and was noted to have on non-STEMI with elevated troponins in the setting of heartburn. At present, the patient is chest pain free. He denies any shortness of breath. He does have an occasional cough and wheeze that is being treated with pulmonary toiletry. 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 PHYSICAL EXAMINATION: VITAL SIGNS: At the time of evaluation was 97.9 with respirations of 20, pulse of 79 and blood pressure 134/57 with a pulse ox of 99%. Monitor shows normal sinus rhythm. HEAD: Normocephalic, atraumatic. EYES: Show no icterus. EARS: Clear. THROAT: Noninjected. NECK: Supple. HEART: S1, S2 with a soft systolic ejection murmur at the left sternal border. No rubs. No pathological murmurs appreciated. LUNGS: With rhonchi that clear with coughing. ABDOMEN: Obese. EXTREMITIES: No edema. SKIN: Without rash. NEUROLOGIC: Intact. PSYCHOLOGICAL: Alert. VASCULAR: Legs warm to touch. LABORATORY DATA: Hemoglobin 9.7, hematocrit 30.3. PT/INR 1.13, PTT 26.1. Sodium 142, K 4.0, chloride 105, bicarbonate 27, BUN 28, creatinine 0.8. His random blood sugar was 155. Ferritin level is 34, normal is 5.37-65.9. Troponin #1 was 0.14. Troponin #2 was 0.40. Troponin #3 was 0.23. B12 normal 252. Colic acid normal 3.8. Thyroid level 11.0, normal. Cholesterol 144, LDL 106, triglycerides 82, HDL 31. Urinalysis is unremarkable. Stool for occult blood negative. IMPRESSION: A 66-year-old male with a non-ST elevated myocardial infarction, history of atherosclerotic heart disease, history of coronary stents, carotid stents and leg stents. Also, with a history of hypertension, persistent smoking , daily alcohol abuse and misuse, chronic obstructive pulmonary disease, hyperglycemia, hyperlipidemia and hypothyroidism along with chronic obstructive pulmonary disease and anemia with current stool occult blood negative. PLAN: The patient continues on Zestril 10 mg p.o. b.i.d., Xopenex inhalational therapy q.6 hours, Synthroid 12.5 mcg p.o. daily. I have lowered his Solu- Medrol to 30 mg IV q.8 and have added Lasix 20 mg IV q.12 as well as potassium 20 mEq p.o. at breakfast time. He will continue on Protonix 40 mg IV daily, Plavix 75 mg p.o. daily, Norvasc [address] Brito has started the patient on Lovenox 120 mg subQ q.12 and he continues on metoprolol tartrate 25 mg p.o. b.i.d. He continues on Lipitor 10 mg p.o. at dinnertime, insulin, regular low dose insulin coverage before meals and at bedtime. He is also receiving aspirin 81 mg p.o. daily as per Dr. Brito's recommendation and is ordered to have a basic metabolic panel in the a.m. His hepatitis panel is pending. His hemoglobin A1c is pending and once the patient is stabilized clinically and cleared by GI and cardiology, he will be discharged to home for follow up with his primary care physician in [place], [place]. The patient is awaiting a 2D echocardiogram to evaluate wall motion and continues on a heart healthy diabetic diet. I have discussed with the patient all of the above findings, medications, the need for probable cardiac catheterization, which he may desire to do upon his return to [place] and also I have recommended that he discuss a repeat endoscopy and colonoscopy with his PMD, the timing to be decided upon his return to [place] for completeness sake. Also , the patient will need monitoring of his CBCs and electrolytes on adjusted medication. Greater than 50 minutes was minutes was spent in the care, coordination of care and discussion of care with this patient, his nurse and co-consultants today. Overall prognosis, though stable, is guarded. Nehal Gilbert MD cc: [id number] TT: 03/10/2017 19:27:36 Confirmation # [id number] Dictation # [id number] jovanna MURPHY
--- NOTE | 2017-03-10 23:39 | PN ---
DATE: 03/10/2017 ADDENDUM This patient was seen and evaluated earlier today. PHYSICAL EXAMINATION: GENERAL: The patient is comfortable, not in acute distress. VITAL SIGNS: Pulse 72 per minute, blood pressure 156/73, afebrile, O2 saturation 99. HEENT: Atraumatic, anicteric. NECK: Supple. HEART: S1, S2 heard. LUNGS: Bilateral air entry present. rhonchi present. LABORATORY DATA: Hemoglobin 9.7, hematocrit 30.3. The patient does have an elevated troponin of 0.4 0. Alkaline phosphatase 140, AST 78, ALT is 48. The patient has mildly elevated AST and ALT of 48 A LT and AST is 78. Ultrasound of the abdomen showed heterogeneous echotexture of the hepatic parenchy ma. CBD normal measuring only 3-4 mm. Gallbladder showed no stones. IMPRESSION: This 66-year-old patient admitted with chest pain, shortness of breath. The patient has elevated troponin level. Suspect non-ST segment myocardial infarction. The patient was also found to have elevated LFTs. GI consult further requested to evaluate. The patient's LFTs are mainly ____ _. The patient had an ultrasound scan of the abdomen done, which showed no stones. CBD normal. The likelihood for this abnormal LFTs could be related to hepatic congestion, chronic liver disease, misha uld include . Would recommend: 1. Followup of the LFTs. 2. Baseline hepatitis profile. 3. Hepatic congestion could be the most likely cause to be considered. The patient does have bilate ral pitting pedal edema also. We will continue to closely follow up the LFTs. We will continue to c losely follow up his care and suggest further recommendation based on the clinical course. Gisele Arciniega MD cc: [phone] TT: 03/10/2017 23:39:25 Confirmation # [id number] Dictation # [id number] mn
[2017-03-11] MEDS: Levalbuterol 0.63 MG/3 ML Inhal Soln UD IH SCH ×4 (02:50→19:43)
[2017-03-11] MEDS: MethylPREDNISolone 40 mg Vial IV SCH (05:43)
[2017-03-11 07:36] LABS: BLOOD UREA NITROGEN 27 mg/dL (7-21); CALCIUM 9.1 mg/dL (8.4-10.5); CARBON DIOXIDE 30 mmol/L (21-33); CHLORIDE 103 mmol/L (98-107); GFR AFRICAN-AMERICAN > 60; GLUCOSE,RANDOM 154 mg/dL (70-110); POTASSIUM 4.2 mmol/L (3.6-5.0); SODIUM 142 mmol/L (132-148)
[2017-03-11] MEDS: Insulin Reg-LOW-Coverage SC SCH ×4 (07:36→22:16)
[2017-03-11] MEDS: Levothyroxine 25 MCG TAB PO SCH (07:48)
[2017-03-11] MEDS: Potassium Chloride 20 mEq ER Tab PO SCH (07:49)
[2017-03-11 09:34] LABS: ALKALINE PHOSPHATASE 132 U/L (38-133); ALT/SGPT 162 U/L (7-56); AST/SGOT 228 U/L (15-59)
--- NOTE | 2017-03-11 10:38 | CP.PCM.PN ---
Subjective - Date & Time of Evaluation Date of Evaluation: 03/11/17 Time of Evaluation: 07:00 - Subjective Subjective: Stable on 2R. No CP or SOB. V/S noted.RSR PE: Lungs: clear Cor.: s1S2 Abd.: soft Ext.; no edema Neuro.; alert I/O= [id number] Labs noted. Objective - Vital Signs/Intake and Output Vital Signs (last 24 hours): Temp Pulse Resp BP Pulse Ox 97.8 F 72 19 131/69 96 03/11/17 05:12 03/11/17 09:36 03/11/17 05:12 03/11/17 09:04 03/11/17 08:53 Intake and Output: 03/11/17 03/11/17 06:59 18:59 Intake Total 120 Output Total 750 Balance -630 - Medications Medications: Current Medications Acetaminophen (Tylenol 325mg Tab) 650 mg PO Q6H PRN PRN Reason: Pain Amlodipine Besylate (Norvasc) 10 mg PO DAILY [facility] Last Admin: 03/11/17 09:03 Dose: 10 mg Aspirin (Aspirin Chewable) 81 mg PO DAILY [facility] Last Admin: 03/11/17 09:02 Dose: 81 mg Atorvastatin Calcium (Lipitor) 10 mg PO DIN [facility] Last Admin: 03/10/17 17:42 Dose: 10 mg Clonidine HCl (Catapres) 0.1 mg PO Q4H PRN PRN Reason: accelerated hyperetension Clopidogrel Bisulfate (Plavix) 75 mg PO DAILY [facility] Last Admin: 03/11/17 09:04 Dose: 75 mg Enoxaparin Sodium (Lovenox) 120 mg SC Q12H [facility] PRN Reason: Protocol Last Admin: 03/10/17 22:12 Dose: 120 mg Furosemide (Lasix) 20 mg IV Q12H [facility] Last Admin: 03/11/17 09:03 Dose: 20 mg Insulin Human Regular (Humulin R Low) 0 units SC ACHS [facility] PRN Reason: Protocol Last Admin: 03/11/17 07:36 Dose: Not Given Levalbuterol HCl (Xopenex) 0.63 mg IH [id number] [facility] Last Admin: 03/11/17 07:53 Dose: 0.63 mg Levothyroxine Sodium (Synthroid) 12.5 mcg PO ACB [facility] Last Admin: 03/11/17 07:48 Dose: 12.5 mcg Lisinopril (Zestril) 10 mg PO BID [facility] Last Admin: 03/11/17 09:04 Dose: 10 mg Methylprednisolone (Solu-Medrol) 30 mg IV Q8 [facility] Last Admin: 03/11/17 05:43 Dose: 30 mg Metoprolol Tartrate (Lopressor) 25 mg PO BRKDIN [facility] Last Admin: 03/11/17 07:49 Dose: 25 mg Pantoprazole Sodium (Protonix Inj) 40 mg IVP DAILY [facility] Last Admin: 03/11/17 09:04 Dose: 40 mg Potassium Chloride (K-Dur 20 Meq Er Tab) 20 meq PO BRK [facility] Last Admin: 03/11/17 07:49 Dose: 20 meq - Labs Labs: 03/10/17 06:15 03/11/17 06:30 PT 12.2 Seconds (9.9-11.8) H 03/09/17 07:33 INR 1.13 (0.93-1.08) H 03/09/17 07:33 APTT 26.1 Seconds (23.7-30.8) 03/09/17 07:33 Assessment and Plan - Assessment and Plan (Free Text) Plan: Assessment: CP/SOB/NSTEMI CAD/Remote MD/PCI-details unavailable Anemia Liver Disease and abn LFT's HBP HLD Smoker Daily ETOH COPD PVD/possible PVI CVD/possible carotid stent Plan: I advised a cardiac cath/possible PCI. he wants to go back to [place] for this. He should have immediate f/u with his physicians upon return home.Give him copy of records to take with him. I spoke to Dr. Gilbert today. GI evaluation underway. D/C lasix D/C Lovenox OOB D/C tobacco and ETOH d/w him.
--- NOTE | 2017-03-11 13:45 | PN ---
DATE: 03/11/2017 This 66-year-old male was examined at his bedside. His case was reviewed with Dr. Dharmesh Brito from cardiology and his nurse, Gayle Woodruff, registered nurse, as well as his sister Leyla in detail. The patient has remained chest pain free. He denies any fever, cough, hemoptysis or pulmonary abdullahi estion. He is cooperating with the nursing staff and tolerating diet and medication without incident . His cardiac catheterization technician shows a normal sinus rhythm. TODAY'S VITAL SIGNS: Temperature 98.3, respiration 20, pulse 68 and blood pressure 131/69. PHYSICAL EXAMINATION: HEAD: Normocephalic, atraumatic. EYES: No icterus. EARS: Clear. THROAT: Noninjected. NECK: Supple. HEART: Regular S1, S2. No pathological rubs, murmurs, or gallops. LUNGS: Clear to auscultation. ABDOMEN: Obese, nontender, no palpable organomegaly, no rebound, no guarding, no tenderness. EXTREMITIES: Show no clubbing, no cyanosis, no edema. SKIN: Without rash. NEUROLOGIC: Intact. PSYCHOLOGICAL: Alert. VASCULAR: Legs warm to touch. LABORATORY DATA: Hemoglobin 9.7, hematocrit 30.3. PT/INR 1.13, PTT 26.1. Sodium 142, K 4.2, chlori de 103, bicarb 30, BUN 27, creatinine 0.8, random blood sugar 154. ALT is 228, ALT is 162, alkaline phosphatase is 132. Hepatitis A, B and C serologies are all negative. Stool for occult blood is neg ative. A 2-D echocardiogram is ordered and pending and hemoglobin A1c is received and not yet report ed. IMPRESSION: A 66-year-old obese male status post exacerbation of chronic obstructive pulmonary disea se, elevated troponins and probable non-ST segment elevation myocardial infarction with comorbidities of chronic alcohol abuse and misuse, persistent cigarette smoking, chronic hypertension, type 2 diab etes mellitus, hyperlipidemia, chronic hypertension, history of peripheral vascular disease, history of coronary artery stents, carotid artery stents and leg stenting as well as hypothyroidism. I had a lengthy discussion with Dr. Dharmesh Brito regarding all of the above as well as the patient's sister Leyla, who states that her brother did indeed have a cardiac catheterization within the past month a nd was told there was no indication for any further intervention with stenting or coronary artery byp ass and that his atherosclerotic heart disease required medical management. This was discussed with Dr. Dharmesh Brito from cardiology as well. The patient is being followed by Dr. Gisele Arciniega from [facility], who feels that the patient's elevated liver function testing is on the basis of pass david congestion as well as chronic alcohol abuse and misuse and fatty liver. This was discussed with the patient and his sister in detail as well and the sister of the patient states that he has been to ld by his farm planner and tablet technician in [place], [place], that he needs to desist from smoki ng and drinking, which he declines to do. PLAN: At the present, the plan is to complete the 2-D echocardiogram. He will continue Zestril 10 m g p.o. b.i.d., Xopenex inhalational therapy q.6, Synthroid 12.5 mcg p.o. daily, Protonix 40 mg IV garth ly, Plavix 75 mg p.o. daily, Norvasc 10 mg p.o. daily, metoprolol tartrate 25 mg p.o. b.i.d., Lipitor 10 mg p.o. b.i.d. He will continue on regular low dose insulin coverage before meals and at bedtime . He will continue Lasix 20 mg p.o. q.12, K-Dur 20 mEq p.o. daily, baby aspirin 81 mg p.o. daily and has an order for nasal O2 p.r.n. He is ordered to have a heart healthy diabetic diet. He will be a mbulated and a consultation with Dr. Luis Mora from hematology has been called for completeness' sak e. I have reemphasized to both the patient and his sister that upon his return to [place], [place] , he will need to follow up with his primary care, cardiology, gastroenterology and hematology and th at he should discuss a repeat endoscopy and colonoscopy with his primary care physician given his ane jonathan as well as current symptoms of GERD. All of this was discussed in great detail with patient and sister Leyla and hopefully, patient will be compliant with the recommendations as outlined above. Greater than 50 minutes was spent in the care, coordination of care, and review of care for this sánchez ent today with himself, his family, his nurse and co-consultants. His prognosis remains stable at present. Nehal Gilbert MD cc: [id number] TT: 03/11/2017 13:44:56 Confirmation # [id number] Dictation # [id number] sn
[2017-03-12] MEDS: Levalbuterol 0.63 MG/3 ML Inhal Soln UD IH SCH ×3 (03:39→13:59)
[2017-03-12 06:18] VITALS: RESP 20; O2SAT 99
[2017-03-12] MEDS: Insulin Reg-LOW-Coverage SC SCH ×2 (07:42→11:30)
[2017-03-12] MEDS: Levothyroxine 25 MCG TAB PO SCH (07:49)
[2017-03-12] MEDS: Potassium Chloride 20 mEq ER Tab PO SCH (07:49)
--- NOTE | 2017-03-12 07:59 | CON ---
DATE: 03/12/2017 This is a 66-year-old man with many medical problems. I am being asked to see him for the anemia. Jose Roberto mcfarlane has alcohol positive, cigarettes positive. He is on multiple medications including Plavix and insu vishnu. He also has severe COPD and he has stents for his coronary artery disease and for his periphera l vascular disease. Evidently he had a cardiac catheterization about a month or 2 ago. He comes in now for severe chest pain and shortness of breath and was found to have a subendocardial myocardial i nfarction. But in addition, he was found to have a hemoglobin of 9.7 and liver function tests that a re in the 200 range. PHYSICAL EXAMINATION: SKIN: No petechiae, no bruises, no telangiectasia noted. HEENT: Anicteric. No mucosal lesions noted. NODES: None palpable in the axillary, cervical, supraclavicular or inguinal regions. LUNGS: Clear at present. The patient is able to lie flat, but he does have oxygen on. No vertebral tenderness. HEART: S1, S2. ABDOMEN: Shows an obese man. No liver, no spleen, no tenderness, no rebound, no ascites, no tendern ess. EXTREMITIES: No edema. CENTRAL NERVOUS SYSTEM: No focal finding. The hemoglobin is 9.7. Peripheral smear shows normochromic normocytic, no abnormal lymphocytes, no i ncreased or low polys. The ferritin is slightly elevated at 34, but the iron saturation is 10%. His liver functions are in the 200 range. He says that he had a colonoscopy about 4 years ago he thinks. Denies any change in his bowel habits , any melena or any blood or any black stools. My suspicion here is that he may be bleeding slowly from a site. He has normochromic normocytic jonas francois, but his iron levels are low and the ferritin can be artificially elevated as an acute phase reac tant. So I would put him on iron pills of ferrous fumarate, which is mild Kunal-Sequels, at 1 tablet a day. I would recommend that, when he is more stable, he will go for a colonoscopy. He says he is moving to [place] either today or tomorrow, so at that point you know his other doctors will take over that management. By the way, I reviewed the abdominal sonogram but they did not look at the spleen to ru le out hypersplenism as a partial component to the anemia. So, in summary, this could be anemia of chronic disease, but we must rule out a gastrointestinal blee d from someplace in his intestines. I will give him a trial of iron pills for at least 6 weeks to 8 weeks and reevaluate the iron levels when he is in [place]. Luis Morgan ALEJANDRE cc: [phone] TT: 03/12/2017 07:58:30 Confirmation # [id number] Dictation # [id number] mn
--- NOTE | 2017-03-12 08:13 | PN ---
DATE: 03/11/2017 SUBJECTIVE: This patient was seen and evaluated earlier today. The patient is comfortable. His iqra athing feels much better. PHYSICAL EXAMINATION: VITAL SIGNS: Temperature is afebrile. Blood pressure 131/69, pulse 68, respirations 20. HEENT: Atraumatic, anicteric. NECK: Supple. HEART: S1, S2 heard. LUNGS: Bilateral normal vesicular breath sounds. ABDOMEN: Soft. There is no tenderness. EXTREMITIES: No edema, no cyanosis. NEUROLOGIC: Alert, oriented. Moves all the extremities. LABORATORY DATA: Hemoglobin 9.7, hematocrit 30.3, ALT is 228, ALT is 162, alkaline phosphatase 132. Hepatitis serology is negative. 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 The real concern is the elevated LFTs. PLAN: The patient is presently visiting from [place]. The patient needs to have followup of the GI workup, GI followup as an outpatient if the patient is discharged. The present problem, the patient needs to closely followed up of the LFTs. Thank you very much for allowing us to participate in the care of the patient. Gisele Arciniega MD cc: [phone] TT: 03/11/2017 23:29:57 Confirmation # [id number] Dictation # [id number] nazia
--- NOTE | 2017-03-12 08:56 | CP.PCM.PN ---
Subjective - Date & Time of Evaluation Date of Evaluation: 03/12/17 Time of Evaluation: 07:00 - Subjective Subjective: Stable on 2R. No CP or SOB. V/S noted.RSR PE: Lungs: clear Cor.: s1S2 Abd.: soft Ext.; no edema Neuro.; alert I/O= 240/900 Labs noted. Echo: Prelim: Nl LV fx. See full report. Objective - Vital Signs/Intake and Output Vital Signs (last 24 hours): Temp Pulse Resp BP Pulse Ox 98.3 F 62 20 124/64 99 03/12/17 06:00 03/12/17 07:49 03/12/17 06:00 03/12/17 07:49 03/12/17 06:00 Intake and Output: 03/12/17 03/12/17 06:59 18:59 Intake Total 240 Output Total 900 Balance -660 - Medications Medications: Current Medications Acetaminophen (Tylenol 325mg Tab) 650 mg PO Q6H PRN PRN Reason: Pain Amlodipine Besylate (Norvasc) 10 mg PO DAILY [facility] Last Admin: 03/11/17 09:03 Dose: 10 mg Aspirin (Aspirin Chewable) 81 mg PO DAILY [facility] Last Admin: 03/11/17 09:02 Dose: 81 mg Atorvastatin Calcium (Lipitor) 10 mg PO DIN [facility] Last Admin: 03/11/17 17:10 Dose: 10 mg Clonidine HCl (Catapres) 0.1 mg PO Q4H PRN PRN Reason: accelerated hyperetension Clopidogrel Bisulfate (Plavix) 75 mg PO DAILY [facility] Last Admin: 03/11/17 09:04 Dose: 75 mg Famotidine (Pepcid) 40 mg PO HS DIANE Furosemide (Lasix) 20 mg PO BID [facility] Last Admin: 03/11/17 17:10 Dose: 20 mg Insulin Human Regular (Humulin R Low) 0 units SC ACHS DIANE PRN Reason: Protocol Last Admin: 03/12/17 07:42 Dose: Not Given Levalbuterol HCl (Xopenex) 0.63 mg IH [id number] [facility] Last Admin: 03/12/17 07:58 Dose: 0.63 mg Levothyroxine Sodium (Synthroid) 12.5 mcg PO ACB [facility] Last Admin: 03/12/17 07:49 Dose: 12.5 mcg Lisinopril (Zestril) 10 mg PO BID [facility] Last Admin: 03/11/17 17:10 Dose: 10 mg Metoprolol Tartrate (Lopressor) 25 mg PO BRKDIN [facility] Last Admin: 03/12/17 07:49 Dose: 25 mg Potassium Chloride (K-Dur 20 Meq Er Tab) 20 meq PO BRK [facility] Last Admin: 03/12/17 07:49 Dose: 20 meq - Labs Labs: 03/10/17 06:15 03/11/17 06:30 PT 12.2 Seconds (9.9-11.8) H 03/09/17 07:33 INR 1.13 (0.93-1.08) H 03/09/17 07:33 APTT 26.1 Seconds (23.7-30.8) 03/09/17 07:33 Assessment and Plan - Assessment and Plan (Free Text) Plan: Assessment: CP/SOB/NSTEMI CAD/Remote CO/PCI-details unavailable: H/O cath 1 - 2 months ago and medical therapy advised Anemia Liver Disease and abn LFT's HBP HLD Smoker Daily ETOH COPD PVD/possible PVI CVD/possible carotid stent Plan: As per Heme and GI and Dr. Gilbert D/C tobacco and ETOH. Out-pt F/U for cardiac and medical problems in [place].
--- NOTE | 2017-03-12 10:12 | CARD ---
APPROVED REPORT EXAM: Two-dimensional and M-mode echocardiogram with Doppler and color Doppler. Other Information Quality : FairRhythm : INDICATION Chest Pain , NSTEMI 2D DIMENSIONS Left Atrium (2D)4.0 (1.6-4.0cm)IVSd1.3 (0.7-1.1cm) LVDd4.2 (3.9-5.9cm)PWd1.3 (0.7-1.1cm) LVDs2.6 (2.5-4.0cm)FS (%) 38.1 % LVEF (%)68.0 (>50%) M-Mode DIMENSIONS Left Atrium (MM)4.30 (2.5-4.0cm)Aortic Root3.90 (2.2-3.7cm) Aortic Cusp Exc.2.10 (1.5-2.0cm) Aortic Valve AoV Peak Irdsyhaa168.0cm/sAoV VTI36.4cmLVOT Peak Nqhgtzfm505.0cm/s LVOT VTI25.10cm Mitral Valve MV E Ydnhomcj57.0cm/sMV A Tkuaopuz13.5cm/sE/A ratio1.1 TDI Lateral E' Peak V11.20cm/sMedial E' Peak V6.43cm/sE/Lateral E'8.5 E/Medial E'14.8 Tricuspid Valve TR Peak Fgaetayd154bv/sRAP QJDGBKLW68lcLbUM Peak Gr.20mmHg [id number] LEFT VENTRICLE The left ventricle is normal size. There is normal left ventricular wall thickness. The left ventricular function is normal. The left ventricular ejection fraction is within the normal range. There is normal LV segmental wall motion. RIGHT VENTRICLE The right ventricle is normal size. ATRIA The left atrium size is normal. The right atrium size is normal. The interatrial septum is intact with no evidence for an atrial septal defect. AORTIC VALVE The aortic valve is normal in structure. MITRAL VALVE The mitral valve is normal in structure. Mitral regurgitation is trace. TRICUSPID VALVE The tricuspid valve is normal in structure. There is trace tricuspid regurgitation. PULMONIC VALVE The pulmonic valve is not well visualized. GREAT VESSELS The aortic root is normal in size. PERICARDIAL EFFUSION There is no pericardial effusion. <Conclusion> The left ventricle is normal size. There is normal left ventricular wall thickness. The left ventricular function is normal.
--- NOTE | 2017-03-12 11:30 | RAD ---
HISTORY: r/o CHF COMPARISON: 03/09/2017 TECHNIQUE: Chest PA and lateral FINDINGS: LUNGS: No active pulmonary disease. PLEURA: No significant pleural effusion identified. No pneumothorax apparent. CARDIOVASCULAR: Mild cardiomegaly. Mild to moderate vascular congestion OSSEOUS STRUCTURES: No significant abnormalities. VISUALIZED UPPER ABDOMEN: Normal. OTHER FINDINGS: None. IMPRESSION: Mild to moderate vascular congestion
[2017-03-12 11:46] VITALS: BP 118/63; PULSE 63; TEMP 98.4
--- NOTE | 2017-03-12 12:39 | PN ---
DATE: 03/12/2017 GI FOLLOWUP NOTE Seen and examined at the bedside with his sister at the bedside. The patient denies any nausea, vomi ting, or abdominal pain. The patient reports having formed bowel movement. No bleeding or bright re d blood. No specific complaints of shortness of breath or chest pain. No acute overnight events. VITAL SIGNS: Temperature is 98.4, blood pressure 118/63, pulse 63, respirations 20. LABORATORY DATA: No new labs are noted right now for today. Chest: The patient had a chest x-ray today. Lungs: No active pulmonary disease, no pleural effusio n identified. No pneumothorax. Mild cardiomegaly with mild to moderate vascular congestion. PHYSICAL EXAMINATION: HEENT: Sclerae are anicteric. NECK: Supple. CARDIAC: S1, S2. LUNGS: Lung sounds with decreased breath sounds and minimal rhonchi. No wheezing. ABDOMEN: With bowel sounds, soft, nontender. No rebound, no guarding. EXTREMITIES: No edema noted. NEUROLOGIC: Awake, alert, and oriented. ASSESSMENT: A 66-year-old patient with history of chronic obstructive pulmonary disease admitted wi th shortness of breath, non-ST elevation myocardial infarction, history of EtOH in the past. The pat ient with history of peripheral vascular disease. Liver enzymes - the patient had ultrasound done, w hich was negative for stones or abnormality in the common bile duct. May be related to hepatic conge stion. PLAN: Continue to trend LFTs. The patient may be possibly discharged today. The patient is michelle valdes from [place], [place]. He will be accompanied by his sister. Discussed with them to continue fo llowup with GI specialist in [place]. The patient is currently on Plavix. Continue PPI. He is on L asix, getting potassium replacement. The patient was seen and case discussed with Dr. Arciniega. Teodora GORDON cc: [phone] TT: 03/12/2017 12:38:52 Confirmation # [id number] Dictation # [id number] jn
--- NOTE | 2017-03-12 20:54 | DS ---
FINAL DIAGNOSES: Non-ST elevation myocardial infarction by cardiac enzymes, chronic stable atherosclerotic heart disease, history of chronically elevated liver function testing, fatty liver, pulmonary congestion, COPD, hyperlipidemia , chronic hypertension, obesity, history of peripheral vascular disease, anemia , alcohol abuse and misuse, smoking abuse. DISPOSITION: Home with his sister. The patient will be returning to [place], [place] and has a full copy of all labs to review with his PMD. This case has been reviewed in detail with his sister, Leyla, in person and her cell phone number is [phone] who is aware of all of the above diagnoses and that the patient is to follow up with his PMD upon return to [place] in the next several days for followup blood testing, chest x-ray and additional cardiac and pulmonary followup as well as GI and hematological followup. DISCHARGE MEDICATIONS: Ecotrin 81 mg p.o. daily, Lasix 20 mg p.o. b.i.d., potassium 20 mEq p.o. daily, ferrous gluconate 324 mg p.o. daily for 1 month only, then for patient to have followup blood work and follow up with hematology and GI for endoscopy, colonoscopy. Also, albuterol/Ventolin inhaler 2 puffs q. 4 hours p.r.n. and he is taking Samia 10-40 mg p.o. daily, metoprolol tartrate 25 mg p.o. b.i.d., Plavix 75 mg p.o. daily, Synthroid 12.5 mg p.o. daily. He is on Pravachol 20 mg p.o. at dinnertime. SUMMARY: This 66-year-old male was admitted to [facility] with substernal chest pain which he described as heartburn with positive troponins, raising suspicion for a non-STEMI IL. The patient was seen in cardiac consultation by Dr. Brito who felt the patient should be treated medically and his troponins did decrease. He underwent a 2D echocardiogram of the heart that showed normal left ventricular wall function and motion. The sister of the patient, Leyla, stated that the patient had a cardiac catheterization approximately 1 month ago while back home in [place] that showed medical atherosclerotic heart disease and that the patient was not recommended to have either stents or cardiac bypass. The patient was also on this admission noted to have a normochromic normocytic anemia, was seen in consultation by Dr. Luis Mora from hematology, who felt that he should have a trial of ferrous gluconate 1 tablet daily for one month and for his PMD in [place] to repeat his blood work at that time and to decide further treatment options and also to refer the patient for endoscopy and colonoscopy to rule out an occult GI bleed. This was expressed to the patient and his sister as well. The patient also has a history of chronically elevated liver function testing including AST, ALT. This was evaluated by Dr. Gisele Arciniega from GI. His hepatitis A, B, C panels were negative. His stool for occult blood was negative and a liver ultrasound revealed a fatty liver. He was advised that this will need further followup when he returns to [place] as well. Thyroid function was within normal limits and at the time of discharge, the patient was chest pain free with a pulse ox of 99% on room air and a followup chest x-ray showed mild pulmonary congestion which most likely is on the basis of COPD and unlikely to be related to his stable cardiac condition at the present time. At the time of discharge, his temperature was 98.3, respirations 20, pulse 62, and blood pressure 124/62 with a pulse ox of 99% room air. Labs showed a hemoglobin 9.7, hematocrit 30.3. PT/INR was 1.13, PTT was 26.1. Sodium 142, K 4.2, chloride 103, bicarb 30, BUN 27, creatinine 0.8. Cholesterol 144, LDL 106, HDL 31, triglycerides 82. T4 11. Urinalysis unremarkable. Stool for occult blood negative. Hepatitis A, B, C serologies negative. Echocardiogram showed left ventricle normal in size, normal left ventricle wall thickness and function to be normal. The patient was cleared for discharge to home by GI, hematology and cardiology. I have reviewed this case in great detail with the patient and his sister who has a copy of his medical records for review of his primary care physician upon return to [place] and greater than 60 minutes was spent in the care, coordination of care and review of care for this patient's discharge today. Nehal Gilbert MD cc: [id number] TT: 03/12/2017 20:54:11 nazia MURPHY
--- NOTE | 2017-03-13 02:04 | PN ---
DATE: 03/12/2017 ADDENDUM: This is an addendum to the GI progress report dictated by Teodora Fajardo NP. SUBJECTIVE: The patient is feeling much better. He plans to go back to [place]. The patient was clearly told about the need to follow up with the production honing machine operator locally there. The patient does have transaminases elevation. ABDOMEN: Soft, no tenderness. PLAN: I have also discussed with the patient's sister who was at bedside. The patient was advised to get copies of the records to follow up. Thank you for allowing us to participate in the care of the patient. Gisele Arciniega MD cc: [phone] TT: 03/13/2017 01:46:05 Confirmation # [id number] Dictation # [id number] nazia MURPHY
== END 2017-03-12 15:15 | disposition home or self-care (01) | DRG 282 ==
LOC: ED 07:06 → ERH 09:24 → 2RNO 11:58
PROVIDERS: ADMIT Internal Medicine; ATTEND Internal Medicine
DX: I21.4 Non-ST elevation (NSTEMI) myocardial infarction (principal); K76.0 Fatty (change of) liver, not elsewhere classified; J44.9 Chronic obstructive pulmonary disease, unspecified; E11.9 Type 2 diabetes mellitus without complications; I10 Essential (primary) hypertension; D64.9 Anemia, unspecified; I73.9 Peripheral vascular disease, unspecified; E03.9 Hypothyroidism, unspecified; I25.10 Atherosclerotic heart disease of native coronary artery without angina pectoris; E78.5 Hyperlipidemia, unspecified; E66.9 Obesity, unspecified; F10.10 Alcohol abuse, uncomplicated; F17.200 Nicotine dependence, unspecified, uncomplicated; K21.9 Gastro-esophageal reflux disease without esophagitis; Z82.49 Family history of ischemic heart disease and other diseases of the circulatory system; Z86.73 Personal history of transient ischemic attack (TIA), and cerebral infarction without residual deficits; Z80.6 Family history of leukemia; Z95.5 Presence of coronary angioplasty implant and graft; Z98.42 Cataract extraction status, left eye; Z98.41 Cataract extraction status, right eye; Z87.892 Personal history of anaphylaxis; Z91.013 Allergy to seafood